=== PATIENT | male | born 1955 | race Caucasian/White ===

== ENCOUNTER → 2021-10-20 | Day surgery (SDC) | payer MEDICARE ==
[~2021-10-20] VITALS: Ht 180.3 cm; Wt 90.7 kg
[~2021-10-20] MED LIST: ARICEPT 5MG TABL5 MG PO; CLARITIN10 MG PO; CYCLOBENZAPRINE10 MG PO; CYMBALTA20 MG PO; DEPO-TESTO200 MG/1 M SC; FLEXERIL10 MG PO; FLOMAX 0.4 MG0.4 MG PO; FOLIC ACID1 MG PO; INDERAL XL120 MG PO; NAMENDA 10MG TA10 MG PO; NORVASC 10MG TA10 MG PO; OXYCODONE HCL15 M1 PO; OXYCODONE HCL15 MG PO; PRILOSEC20 MG PO; RISPERDAL 1MG TA1 MG PO; SINEQUAN10 MG PO; TRAZODONE 100M100 MG PO; VITAMIN B-1100 M1 PO; VITAMIN D310 MC3 PO; XANAX1 MG PO; ZANTAC150 MG PO; ZETIA10 MG PO
== END | disposition home or self-care (01) ==
LOC: FAS 09:21
DX: Z12.11 Encounter for screening for malignant neoplasm of colon (principal); K59.09 Other constipation; G89.29 Other chronic pain; M54.9 Dorsalgia, unspecified; I10 Essential (primary) hypertension; Z86.010 Personal history of colon polyps
CPT/HCPCS: J2704; J7120